=== PATIENT | male | born 1980 | race African-American/Black ===

== ENCOUNTER 2017-04-07 17:06 | Emergency (ER) | payer MEDICAID ==
[~2017-04-07] VITALS: Ht 185.4 cm; Wt 109.0 kg
[2017-04-07 21:29] VITALS: BP 123/76
[2017-04-07] MEDS ORDERED: KETOROLAC 60MG/2ML VIAL IM ONE (21:30)
== END 2017-04-07 22:00 | disposition home or self-care (01) ==
LOC: ER 20:41
DX: K08.89 Other specified disorders of teeth and supporting structures (principal)
CPT/HCPCS: 96372; 99283; J1885

== ENCOUNTER 2017-12-25 04:23 | Emergency (ER) | payer MEDICAID ==
[~2017-12-25] VITALS: Ht 185.4 cm; Wt 105.0 kg
[2017-12-25] MEDS ORDERED: ACETAMINOPHEN 500MG TABLET PO ONE (08:15)
[2017-12-25] MEDS ORDERED: CLINDAMYCIN HCL 150MG CAPSULE PO SCH (08:15)
[2017-12-25] MEDS ORDERED: KETOROLAC 30MG/ML VIAL IM ONE (08:15)
[2017-12-25 08:57] VITALS: BP 112/68
== END 2017-12-25 08:57 | disposition home or self-care (01) ==
LOC: ER 06:31
DX: K08.89 Other specified disorders of teeth and supporting structures (principal); F17.200 Nicotine dependence, unspecified, uncomplicated
CPT/HCPCS: 96372; 99283; J1885; Z7610